=== PATIENT | male | born 1955 | race Caucasian/White ===

== ENCOUNTER 2017-12-19 17:49 | Emergency (ER) | payer OTHER ==
[~2017-12-19] VITALS: Ht 180.3 cm; Wt 86.2 kg
[~2017-12-19 17:49] MED LIST: CIPRO500 MG PO; DULERA 100 MCG/13 GM; FLAGYL500MG PO; INTESTINEX1 CA1 PO; INTESTINEX1 CAP PO; METRONIDAZOLE500 MG PO
[2017-12-19] MEDS ORDERED: FLOVENT HFA12 G1 (18:07)
[2017-12-19] MEDS ORDERED: NYSTOP60 GM (18:10)
[2017-12-19] MEDS ORDERED: FLUTICASONE PROPIONA (18:10)
== END 2017-12-19 21:21 | disposition home or self-care (01) ==
LOC: ER 17:49
DX: L03.311 Cellulitis of abdominal wall (principal); Z93.3 Colostomy status

== ENCOUNTER 2018-01-28 14:31 | Inpatient (IN) | payer OTHER ==
[~2018-01-28] VITALS: Ht 180.3 cm; Wt 92.1 kg
[~2018-01-28 14:31] MED LIST changes: +FLOVENT HFA12 G1; +FLUTICASONE PROPIONA; +NYSTOP60 GM
[2018-01-28] MEDS ORDERED: SINGULAIR 4MG4 MG (14:51)
== END 2018-02-12 17:07 | disposition home or self-care (01) | DRG 920 ==
LOC: ER 14:31 → MEDJ 01-29 10:11
PROC: 3E0F7GC Introduction of Other Therapeutic Substance into Respiratory Tract, Via Natural or Artificial Opening (ICD-10-PCS; principal; 2018-01-31)
DX: T81.83XA Persistent postprocedural fistula, initial encounter (principal); K63.2 Fistula of intestine; K94.09 Other complications of colostomy; N39.0 Urinary tract infection, site not specified; C20 Malignant neoplasm of rectum; N13.8 Other obstructive and reflux uropathy; J45.998 Other asthma; B96.29 Other Escherichia coli [E. coli] as the cause of diseases classified elsewhere; B96.4 Proteus (mirabilis) (morganii) as the cause of diseases classified elsewhere; B96.5 Pseudomonas (aeruginosa) (mallei) (pseudomallei) as the cause of diseases classified elsewhere; B95.2 Enterococcus as the cause of diseases classified elsewhere; N40.1 Benign prostatic hyperplasia with lower urinary tract symptoms; B96.89 Other specified bacterial agents as the cause of diseases classified elsewhere; N48.1 Balanitis; Z92.21 Personal history of antineoplastic chemotherapy

== ENCOUNTER 2019-07-01 15:28 | Inpatient (IN) | payer OTHER ==
[~2019-07-01] VITALS: Ht 180.3 cm; Wt 99.8 kg
[~2019-07-01 15:28] MED LIST changes: +SINGULAIR 4MG4 MG
[2019-07-20] MEDS ORDERED: FLOVENT IH (15:04)
[2019-07-27] MEDS ORDERED: FLOVENT HFA10.6 GM (09:51)
[2019-07-27] MEDS ORDERED: FLONASE16 GM (09:51)
[2019-08-07] MEDS ORDERED: INTESTINEX680 M1 PO (09:20)
[2019-08-07] MEDS ORDERED: LEVAQUIN500 MG PO (09:21)
[2019-08-07] MEDS ORDERED: OXYC1TAB9 PO (09:21)
== END 2019-08-07 09:58 | disposition home or self-care (01) | DRG 330 ==
LOC: SURH 07-20 12:30 → ADM 07-20 12:30 → EDSTATUS 07-20 12:30 → O/R 07-27 07:36 → SURG 07-27 07:36 → SURH 07-27 12:30 → SURG 07-27 17:45 → SURH 07-31 12:29
PROVIDERS: ADMIT Colon & Rectal Surgery
PROC: 3E0F7GC Introduction of Other Therapeutic Substance into Respiratory Tract, Via Natural or Artificial Opening (ICD-10-PCS; 2019-07-27)
PROC: 4A19X1Z Monitoring of Respiratory Capacity, External Approach (ICD-10-PCS; 2019-07-27)
PROC: 0DBL4ZZ Excision of Transverse Colon, Percutaneous Endoscopic Approach (ICD-10-PCS; principal; 2019-07-27 17:30)
PROC: 02HV33Z Insertion of Infusion Device into Superior Vena Cava, Percutaneous Approach (ICD-10-PCS; 2019-07-30)
DX: K94.09 Other complications of colostomy (principal); B37.0 Candidal stomatitis; C20 Malignant neoplasm of rectum; J98.11 Atelectasis; R33.9 Retention of urine, unspecified; J45.20 Mild intermittent asthma, uncomplicated; Y83.8 Other surgical procedures as the cause of abnormal reaction of the patient, or of later complication, without mention of misadventure at the time of the procedure

== ENCOUNTER 2019-09-07 15:48 | Emergency (ER) | payer OTHER ==
[~2019-09-07] VITALS: Ht 180.3 cm; Wt 94.3 kg
[~2019-09-07 15:48] MED LIST changes: +FLONASE16 GM; +FLOVENT HFA10.6 GM; +FLOVENT IH; +INTESTINEX680 M1 PO; +LEVAQUIN500 MG PO; +OXYC1TAB9 PO
== END 2019-09-07 17:07 | disposition home or self-care (01) ==
LOC: ER 15:48
DX: N48.1 Balanitis (principal)

== ENCOUNTER 2020-01-26 10:30 | Emergency (ER) | payer OTHER ==
[~2020-01-26] VITALS: Ht 180.3 cm; Wt 95.3 kg
[2020-01-26] MEDS ORDERED: PROAIR HFA8.5 GM (10:52)
[2020-01-26] MEDS ORDERED: BENADRYL25 MG (10:53)
[2020-01-26] MEDS ORDERED: FLUCONAZOLE150 MG PO (14:41)
[2020-01-26] MEDS ORDERED: MOMETASONE FURO15 G2 TOP (14:43)
[2020-01-26] MEDS ORDERED: ZYRTEC10 M3 PO (14:43)
[2020-01-26] MEDS ORDERED: ATARAX25 MG PO (14:52)
[2020-01-26] MEDS ORDERED: BACTRIM DS TAB1 EACH PO (14:53)
== END 2020-01-26 14:56 | disposition home or self-care (01) ==
LOC: ER 10:30
DX: R21 Rash and other nonspecific skin eruption (principal); Z03.818 Encounter for observation for suspected exposure to other biological agents ruled out

== ENCOUNTER 2020-10-30 10:21 | Emergency (ER) | payer OTHER ==
[~2020-10-30] VITALS: Ht 180.3 cm; Wt 90.7 kg
[~2020-10-30 10:21] MED LIST changes: +ATARAX25 MG PO; +BACTRIM DS TAB1 EACH PO; +BENADRYL25 MG; +FLUCONAZOLE150 MG PO; +MOMETASONE FURO15 G2 TOP; +PROAIR HFA8.5 GM; +ZYRTEC10 M3 PO
== END 2020-10-30 19:11 | disposition home or self-care (01) ==
LOC: ER 10:21
DX: K62.5 Hemorrhage of anus and rectum (principal)